=== PATIENT | male | born 1925 | race Caucasian/White ===

== ENCOUNTER → 2016-12-04 | Outpatient (CLI) | payer MEDICARE ==
--- NOTE | 2016-12-04 15:05 | US ---
EXAMINATION TYPE: US abdomen complete DATE OF EXAM: 12/04/2016 11:10 AM COMPARISON: NONE CLINICAL HISTORY: R16.0 Hepatomegaly, not elsewhere classified. History of colon cancer EXAM MEASUREMENTS: Liver Length: 13.2 cm Gallbladder Wall: 0.3 cm CBD: 0.3 cm Spleen: 11.6 cm Right Kidney: 10.3 x 4.3 x 4.4 cm Left Kidney: 10.4 x 5.1 x 4.7 cm Pancreas: visualized portions appear wnl. Tail of pancreas obscured by bowel gas. Liver: appears wnl Gallbladder: no evidence of stones Evidence for sonographic Colin's sign: No CBD: wnl Spleen: granulomas Right Kidney: cystic area lateral/mid = 0.9 x 0.7 x 0.8cm Left Kidney: no evidence of hydronephrosis or mass Upper IVC: wnl Abd Aorta: obscured by overlying bowel content IMPRESSION: 1. Right renal cyst. 2. Abdomen ultrasound otherwise unremarkable.
== END | disposition home or self-care (01) ==
LOC: RADUSWWP 10:44
PROVIDERS: ATTEND Internal Medicine
DX: N28.1 Cyst of kidney, acquired (principal)
CPT/HCPCS: 76700